=== PATIENT | female | born 1995 | race Hispanic/Latino ===

== ENCOUNTER 2017-05-08 12:47 | Emergency (ER) | payer SELFPAY ==
[2017-05-08] MEDS ORDERED: PREDNISONE 20 MG TABLET ONE (14:02)
[2017-05-08] MEDS ORDERED: DIPHENHYDRAMINE HCL 25 MG CAPSULE ONE (14:03)
[2017-05-08] MEDS ORDERED: FAMOTIDINE 20MG TAB 20 MG TAB ONE (14:03)
== END 2017-05-08 14:21 | disposition home or self-care (01) ==
LOC: EDH 12:47
DX: L50.0 Allergic urticaria (principal)
CPT/HCPCS: 99284; Q0163

== ENCOUNTER 2022-06-12 09:11 | Emergency (ER) | payer OTHER ==
[~2022-06-12] VITALS: Ht 167.6 cm; Wt 83.9 kg
[2022-06-12 09:13] VITALS: BP 124/67
== END 2022-06-12 10:14 | disposition home or self-care (01) ==
LOC: EDH 09:11
DX: S60.342A External constriction of left thumb, initial encounter (principal); W49.04XA Ring or other jewelry causing external constriction, initial encounter; Y93.89 Activity, other specified; Y92.89 Other specified places as the place of occurrence of the external cause; Y99.8 Other external cause status
CPT/HCPCS: 99282